=== PATIENT | female | born 1990 | race Caucasian/White ===

== ENCOUNTER 2016-06-27 19:13 | Emergency (ER) | payer BC ==
--- NOTE | ~2016-06-27 | ER ---
PATIENT'S NAME: DANIELLA [facility] AGE: 26 Y [address] ROOM: [place] [address] LOCATION: ED ADMIT DATE: 06/27/2016 ER/Outpatient Report DISCHARGE DATE: 06/27/2016 FAMILY PHYSICIAN: PHYSICIAN, NO ATTENDING PHYSICIAN: Joey Overton Admission date and time documented on the medical record. I saw the patient at 1930 hours. CHIEF COMPLAINT: Right lower jaw tooth pain. HISTORY OF PRESENT ILLNESS: The patient is a 26-year-old female, who woke up this morning with right lower jaw pain, swelling, and tooth pain. She has had some problems with her wisdom teeth that did not come in yet. She also has about five cavities that are giving her problems. She saw a dentist two weeks ago, but does not have enough money for repair at this time. No fever, chills, or sweats. No coughs, colds, or flus. No lightheadedness, dizziness, syncope, or near syncope. No fall or trauma. No headache, eyes, ears, nose, throat, neck, or spine pain. No neuro changes. HOME MEDICATIONS: None. ALLERGIES: NONE. SOCIAL HISTORY: The patient smokes half pack of cigarettes per day, nondrinker. SIGNIFICANT PAST MEDICAL HISTORY: Negative except for tobacco abuse. OPERATIONS: delivery, cholecystectomy. REVIEW OF SYSTEMS: All systems reviewed by me are negative with exception of those discussed in the history of the present illness. PHYSICAL EXAMINATION: VITAL SIGNS: Temperature 98.6 tympanic, pulse 74, respirations 16, blood pressure 138/76, O2 saturation on room air is 100%. HEENT: Mucous membranes are moist. Posterior pharynx clear. The patient has PATIENT'S NAME: DANIELLA [facility] AGE: 26 Y [address] ROOM: [place] [address] LOCATION: ED ADMIT DATE: 06/27/2016 ER/Outpatient Report DISCHARGE DATE: 06/27/2016 FAMILY PHYSICIAN: PHYSICIAN, NO ATTENDING PHYSICIAN: Joey Overton lot of swelling and redness to right eye. Gum just behind the posterior molar. She has multiple dental caries. I think this area is a result of some thing going on with her wisdom tooth on the right lower jaw area. NECK: No nuchal rigidity. No thyromegaly or cervical adenopathy. IMPRESSION: Right lower jaw pain secondary to wisdom tooth problems and dental caries. PLAN: The patient dismissed from the emergency department. Observation activity as tolerated. Ice and heat to sore area of the jaw intermittently as needed. Ken[place] 5/325 as needed for pain, amoxicillin 500 mg 3 times a day for 10 days, ibuprofen or Aleve as needed for pain. See a dentist. Follow up with personal physician as needed. MD SUMEET DE LEÓN/modl /[id number] d: 06/28/167 t: 06/28/16 1822, OUTPATIENT REPORT
== END 2016-06-27 19:41 | disposition disaster alternative care site (69) ==
LOC: GMED 19:13
DX: K02.9 Dental caries, unspecified (principal); F17.210 Nicotine dependence, cigarettes, uncomplicated; Z90.49 Acquired absence of other specified parts of digestive tract